=== PATIENT | male | born 1995 | race Native Hawaiian/Other Pacific Islander ===

== ENCOUNTER 2016-11-12 12:18 | Emergency (ER) | payer SELFPAY ==
[~2016-11-12] VITALS: Ht 177.8 cm; Wt 55.0 kg
[2016-11-12 12:20] VITALS: BP 117/73; PULSE 82; RESP 16; TEMP 97.8; O2SAT 97
[2016-11-12] MEDS ORDERED: CLOT1CRE8 TOPICAL (13:11)
[2016-11-12] MEDS ORDERED: CEPH-460 PO (13:11)
--- NOTE | 2016-11-12 13:12 | PD ---
HPI Chief Complaint: Complaint Time Seen by Provider: 12:52 Travel History International Travel<30 days: No Contact w/Intl Traveler<30days: No Traveled to known affect area: No History of Present Illness HPI 21-year-old male presents emergency department for evaluation of foreskin swelling and irritation since this morning. Patient denies penile or testicular pain. Patient is uncircumcised and reports that he can freely retracts and return to foreskin. He denies possibility of STD stating he has not socially active. He denies dysuria, urethral discharge, penile lesions. [facility] Past Medical History Medical History: Denies Significant Hx Immunizations Current: Yes Tetanus Vaccination: < 5 Years Past Surgical History Surgical History: No Previous Surgery Social History Alcohol Use: No Tobacco Use: No Substance Use: No Allergies-Medications (Allergen,Severity, Reaction): Coded Allergies: No Known Allergies (Unverified , 11/12/16) Reported Meds & Prescriptions Reported Meds & Active Scripts Active No Active Prescriptions or Reported Medications Review of Systems Except as stated in HPI: all other systems reviewed are Neg General / Constitutional: No: Fever Physical Exam Narrative GENERAL: Well-nourished, well-developed patient. SKIN: Focused skin assessment warm/dry. HEAD: Normocephalic. EYES: No scleral icterus. No injection or drainage. NECK: Supple, trachea midline. No JVD or lymphadenopathy. CARDIOVASCULAR: Regular rate and rhythm without murmurs, gallops, or rubs. RESPIRATORY: Breath sounds equal bilaterally. No accessory muscle use. GASTROINTESTINAL: Abdomen soft, non-tender, nondistended. GENITOURINARY: Uncircumcised. Mild swelling to the distal foreskin. Mild erythema/irritation of the glans penis. The foreskin is easily retractable and returnable over the glans penis. Testes descended bilaterally without evidence of rotation. No penile lesions. No urethral discharge. MUSCULOSKELETAL: No cyanosis, or edema. BACK: Nontender without obvious deformity. No CVA tenderness. Data Data Last Documented VS Vital Signs Date Time Temp Pulse Resp B/P (MAP) Pulse Ox O2 Delivery O2 Flow Rate FiO2 11/12/16 12:20 97.8 82 16 117/73 (88) 97 Room Air MDM Medical Decision Making Medical Screen Exam Complete: Yes Emergency Medical Condition: Yes Differential Diagnosis Bacterial balanitis, fungal balanitis, paraphimosis Narrative Course 21-year-old male presents emergency department for evaluation of mild foreskin swelling since this morning. Patient denies penile trauma, penile pain, urethral discharge, testicular pain or swelling. He denies possibility of STD. On exam patient has mild distal foreskin swelling and mild glans penis irritation consistent with balanitis. He has no evidence of paraphimosis. The foreskin is freely mobile over the glans penis and returns without difficulty. Patient only has mild discomfort the site. Patient will be treated for balanitis likely bacterial. Strict return precautions discussed if the swelling persists or if the foreskin becomes non-mobile. He is to follow-up with his PCP in one to 2 days. Patient verbalizes understanding and agrees to plan Diagnosis Primary Impression: Balanitis Referrals: Primary Care Physician Additional Instructions: Take the medications as prescribed. Follow-up with her primary doctor in 1-2 days for recheck. Return to the emergency department if you are unable to retract to return to foreskin over the tip of the penis or if he developed new or worsening symptoms. Scripts Clotrimazole Topical (Clotrimazole AF Topical) 1% Cream 1 APPLIC TOPICAL BID for Infection, #15 GM 0 Refills Prov: Anu Robison 11/12/16 Cephalexin (Keflex) 500 Mg Capsule 500 MG PO Q6H for Infection for 7 Days, #28 CAP 0 Refills Prov: Anu Robison 11/12/16 Disposition: 01 DISCHARGE HOME Condition: Stable Anu Robison Nov 12, 2016 13:12
== END 2016-11-12 13:22 | disposition home or self-care (01) ==
LOC: NEPK 12:18
DX: N48.1 Balanitis (principal)
CPT/HCPCS: 99284